=== PATIENT | male | born 1975 | race African-American/Black ===

== ENCOUNTER 2018-03-21 23:24 | Emergency (ER) | payer SELFPAY ==
[~2018-03-21 23:24] MED LIST: DEXTROSE 50% 25 GM / 50ML DISP.SYRIN. IV ONE; EPINEPHrine SYRINGE 1 MG/10 ML SYRINGE ONE; SODIUM BICARB ADULT 8.4% 50 MEQ/50 ML DISP.SYRIN. ONE
[2018-03-21] MEDS ORDERED: ETOMIDATE 20 MG/10 ML VIAL. IV ONE (23:53)
[2018-03-21] MEDS ORDERED: VECURONIUM BOLUS 10 MG VIAL. IV ONE (23:53)
--- NOTE | 2018-03-22 00:10 | PHYS DOC ---
Adult General Chief Complaint Chief Complaint: CPR/FULL ARREST [facility] HPI Patient is a 42-year-old male who presents via EMS with CPR in progress. Call went out at 10:43 PM for witnessed cardiac arrest. Upon EMS arrival, patient was pulseless and upon hooking up to monitor was in asystole. CPR was initiated and epi was given. Patient did have 2 periods of time where he was in ventricular fibrillation during which she was defibrillated. Patient went right back into asystole each time. Patient has remained in asystole since. Patient was given a dose of lidocaine after the second episode of ventricular fibrillation. EMS reports the patient's pupils were fixed and dilated upon their arrival. Additional history is limited due to severity of patient condition. Review of Systems Review of Systems Cardiovascular: No additional information not addressed in HPI [] Neurologic: Unresponsive [] Unable to assess for review of systems due to severity of patient condition. Physical Exam Physical Exam Constitutional: Well developed, well nourished, unresponsive. [] HENT: Normocephalic, atraumatic, bilateral external ears normal, oropharynx moist, no oral exudates, nose normal. [] Eyes: Pupils fixed and dilated, no discharge. [] Neck: Supple, no JVD. [] Cardiovascular: Spontaneous heart sounds are absent. [] Lungs & Thorax: Bilateral breath sounds clear to auscultation with bagged respirations. [] Abdomen: Bowel sounds absent, soft, no masses, no pulsatile masses. [] Skin: Warm, dry. [] Extremities: No clubbing, no edema. [] Neurologic: Unresponsive. [] EKG EKG [] Radiology/Procedures Radiology/Procedures [] Course & Med Decision Making Course & Med Decision Making Pertinent Labs and Imaging studies reviewed. (See chart for details) Cardiopulmonary Resuscitation by me: See code documentation for specific details. ACLS and BLS were performed with high quality chest compressions and minimal interruptions. Reversible causes were assessed and treated. At 2339 a pulse check was performed and patient noted to be in asystole. At this time, patient pronounced at 2339 on March 21, 2018. Dragon Disclaimer Dragon Disclaimer This electronic medical record was generated, in whole or in part, using a voice recognition dictation system. Departure Departure Impression: Primary Impression: Cardiac arrest Disposition: 20 Condition: Referrals: UNKNOWN PCP NAME (PCP) NATASHA SWENSON Jr. DO Mar 22, 2018 00:10
== END 2018-03-21 23:39 | disposition expired ==
LOC: ER 23:24
DX: I46.9 Cardiac arrest, cause unspecified (principal)
CPT/HCPCS: 82962; 92950; J0171; J7042; 99285-25